=== PATIENT | male | born 1955 ===

== ENCOUNTER → 2018-03-12 21:27 | Outpatient (REF) | payer OTHER, SELFPAY ==
[2018-03-12 22:00] LABS: Free T3, Triiodothyronine Free 3.15 pg/mL (2.77-5.27); Free T4, Direct Thyroxine 0.85 ng/dL (0.78-2.19)
[2018-03-12 22:13] LABS: Thyroid Stimulating Hormone 1.97 uIU/mL (0.47-4.68)
[2018-03-15 14:37] LABS: Sex Hormone Binding Globulin 55 nmol/L (22-77)
[2018-03-15 15:47] LABS: Estradiol 26 pg/mL (< 40)
[2018-03-17 14:26] LABS: Testosterone Free 61.8 pg/mL (35.0-155.0); Testosterone Total 488 ng/dL (250-1100)
== END ==
LOC: LAB 21:27
PROVIDERS: Visit Provider Naturopath
DX: F43.23 Adjustment disorder with mixed anxiety and depressed mood (principal); Z13.89 Encounter for screening for other disorder; R68.82 Decreased libido
CPT/HCPCS: 82670; 84270; 84402; 84403; 84439; 84443; 84481